=== PATIENT | male | born 2000 | race Hispanic/Latino ===

== ENCOUNTER 2019-08-07 19:58 | Emergency (ER) | payer OTHER ==
[~2019-08-07] VITALS: Ht 177.8 cm; Wt 120.2 kg
[2019-08-07] MEDS ORDERED: IBUPROFEN 600 MG TAB ONE (20:16)
[2019-08-07] MEDS ORDERED: ACETAMINOPHEN 325 MG TAB ONE (20:16)
[2019-08-07] MEDS ORDERED: IBUPROFEN 600 MG TAB PO STA (21:05)
[2019-08-07] MEDS ORDERED: ACETAMINOPHEN 325 MG TAB PO ONE (21:15)
== END 2019-08-07 21:04 | disposition home or self-care (01) ==
LOC: FSED 19:58
DX: R50.9 Fever, unspecified (principal); R05 Cough; J20.8 Acute bronchitis due to other specified organisms
CPT/HCPCS: 83518; 87400; 99283

== ENCOUNTER 2021-02-23 12:59 | Emergency (ER) | payer OTHER ==
[~2021-02-23] VITALS: Ht 177.8 cm; Wt 108.1 kg
[2021-02-23] MEDS ORDERED: MEDROL4 MG PO (13:19)
[2021-02-23] MEDS ORDERED: KETOCONAZOLE15 GM TOP (13:19)
== END 2021-02-23 13:34 | disposition home or self-care (01) ==
LOC: FSED 13:14
DX: L25.9 Unspecified contact dermatitis, unspecified cause (principal); B37.9 Candidiasis, unspecified; F17.210 Nicotine dependence, cigarettes, uncomplicated
CPT/HCPCS: 99282

== ENCOUNTER 2024-05-23 10:55 | Emergency (ER) | payer BC, OTHER ==
[~2024-05-23] VITALS: Ht 177.8 cm; Wt 107.5 kg
[~2024-05-23 10:55] MED LIST: KETOCONAZOLE15 GM TOP; MEDROL4 MG PO
[2024-05-23 11:05] VITALS: PULSE 102; RESP 16; TEMP 98.4
[2024-05-23] MEDS ORDERED: FLUCONAZOLE100 MG PO (11:34)
[2024-05-23] MEDS ORDERED: LAMISIL AT12 G1 TOP (11:34)
[2024-05-23 11:57] VITALS: BP 172/99; PULSE 73; RESP 18; TEMP 98.1; O2SAT 97
== END 2024-05-23 11:55 | disposition home or self-care (01) ==
LOC: FSED 11:12
DX: B35.3 Tinea pedis (principal)
CPT/HCPCS: 99284